=== PATIENT | female | born 1950 | race Caucasian/White ===

== ENCOUNTER 2016-03-20 16:14 | Emergency (ER) | payer BC, OTHER ==
[~2016-03-20] VITALS: Ht 152.4 cm; Wt 50.0 kg
[2016-03-20 16:17] VITALS: BP 159/70; PULSE 80; RESP 12; TEMP 98.3; O2SAT 96
[2016-03-20 18:40] LABS: BLOOD, URINE NEG (NEG); COMMENT (UR) CULTURE INDICATED; CULTURE IF INDICATED CULTURE INDICATED; GLUCOSE,URINE NEG (NEG); KETONE, URINE NEG (NEG); PH, URINE 6.5 (5.0-8.5); SQUAMOUS EPITHELIAL CELL URINE 1 /hpf (0-5)
[2016-03-20 18:41] LABS: NITRITE,URINE POS (NEG); URINE COLOR AMBER (YELLW/STRAW)
--- NOTE | 2016-03-20 18:56 | PD ---
HPI Chief Complaint: Complaint Time Seen by Provider: 18:10 Travel History International Travel<30 days: No Contact w/Intl Traveler<30days: No Traveled to known affect area: No History of Present Illness HPI Is a 65-year-old woman who presents to the emergency room complaining of pelvic discomfort and dysuria. She was treated for an HSV outbreak, her second outbreak, about 2-3 weeks ago. She was then seen for dysuria and was treated for a bladder infection a couple days ago. She is given a prescription for Bactrim and Pyridium. She isn't feeling actually helping and she still feels uncomfortable. History Past Medical History Narrative Medical Hypertension Hypothyroidism HSV Social History Tobacco Use: No Review of Systems Except as stated in HPI: all other systems reviewed are Neg Physical Exam Narrative GENERAL: Well-appearing 65-year-old woman, no distress. SKIN: Warm and dry. CARDIOVASCULAR: Regular rate and rhythm. No murmur appreciated. RESPIRATORY: No accessory muscle use. Clear to auscultation. Breath sounds equal bilaterally. GASTROINTESTINAL: Abdomen soft, non-tender, nondistended. Hepatic and splenic margins not palpable. : Normal external female genitalia. No obvious lesions or inflammation seen. She is a little bit of bladder and bowel prolapse. NEUROLOGICAL: Awake and alert. No obvious cranial nerve deficits. Motor grossly within normal limits. Normal speech. PSYCHIATRIC: Appropriate mood and affect; insight and judgment normal. Data Data Last Documented VS Vital Signs Date Time Temp Pulse Resp B/P Pulse Ox O2 Delivery O2 Flow Rate FiO2 03/20/16 18:11 16 03/20/16 16:17 98.3 80 159/70 96 Room Air Orders Urinalysis - C+S If Indicated (03/20/16 18:10) Urine Culture (03/20/16 18:15) Labs Laboratory Tests Test 03/20/16 18:15 Urine Color SAILAJA Urine Turbidity CLEAR Urine pH 6.5 Urine Specific [place] 1.018 Urine Protein NEG mg/dL Urine Glucose (UA) NEG mg/dL Urine Ketones NEG mg/dL Urine Occult Blood NEG Urine Nitrite POS Urine Bilirubin NEG Urine Urobilinogen 2.0 MG/DL Urine Leukocyte Esterase NEG Urine RBC 1 /hpf Urine WBC 5 /hpf Urine WBC Clumps RARE Urine Squamous Epithelial 1 /hpf Cells Microscopic Urinalysis Comment CULTURE INDICATED MDM Medical Decision Making Medical Screen Exam Complete: Yes Emergency Medical Condition: Yes Differential Diagnosis UTI, HSV, other Narrative Course Medical decision making 65-year-old woman presents to the emergency department complaining of dysuria. I think she probably still has HSV lesions, maybe in the ureter and somewhere causing her discomfort. Ultimately to pyuria. She may have a cystitis resistant to Bactrim. She may also have some of it for prolapse causing her to have some difficult to treat urinary tract infection. Urine cultures pending. Recommend outpatient follow-up. Continue current medications. Diagnosis Primary Impression: Pelvic pain Additional Instructions: Continue current medications. Fall with your primary doctor 2-4 days every not feeling completely well. Return to the emergency department for any worsening pain, or any other new or worsening symptoms. Med/Other Pt SpecificInfo: No Change to Meds Disposition: 01 DISCHARGE HOME Condition: Stable Migue Young MD Mar 20, 2016 18:56
== END 2016-03-20 19:01 | disposition home or self-care (01) ==
LOC: NETRI 16:14
DX: R10.2 Pelvic and perineal pain (principal); R30.0 Dysuria; I10 Essential (primary) hypertension; E03.9 Hypothyroidism, unspecified
CPT/HCPCS: 81001; 87086; 99283